=== PATIENT | male | born 1985 | race Caucasian/White ===

== ENCOUNTER 2016-12-25 01:27 | Emergency (ER) | payer OTHER ==
[2016-12-25] MEDS ORDERED: Diphtheria,Pertussis(Acell),Tetanus Vaccine 0.5 ML Syringe IM ONE (01:40)
[2016-12-25] MEDS ORDERED: Lidocaine 1% 20 ML MDV INJECT ONE (01:41)
[2016-12-25] MEDS ORDERED: Bacitracin Oint 1 GM U/D Packet TOP ONE (01:41)
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
[2016-12-25 02:46] VITALS: BP 124/65
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
== END 2016-12-25 02:44 | disposition home or self-care (01) ==
LOC: MW.ED 01:27
DX: S06.0X1A Concussion with loss of consciousness of 30 minutes or less, initial encounter (principal); S16.1XXA Strain of muscle, fascia and tendon at neck level, initial encounter; S01.01XA Laceration without foreign body of scalp, initial encounter; F17.210 Nicotine dependence, cigarettes, uncomplicated; Y04.0XXA Assault by unarmed brawl or fight, initial encounter; Z23 Encounter for immunization
CPT/HCPCS: 70450; 72125; 90471; 90715; 99284; G0390; 99283